=== PATIENT | female | born 2000 | race Two or more races ===

== ENCOUNTER → 2024-07-10 | Emergency (ER) | payer BC ==
[~2024-07-10] VITALS: Ht 162.6 cm; Wt 59.0 kg
[~2024-07-10] MED LIST: CEFTRIAXONE SODIUM 1,000 MG VIAL IV STA; CEFTRIAXONE SODIUM 1,000 MG VIAL ONE; LIDOCAINE HCL 1% 10ML VIAL ONE
== END | disposition home or self-care (01) ==
LOC: ER 12:05
DX: R22.30 Localized swelling, mass and lump, unspecified upper limb (principal)